=== PATIENT | male | born 2000 | race Two or more races ===

== ENCOUNTER 2025-03-02 14:41 | Emergency (ER) | payer MEDICAID, SELFPAY ==
[2025-03-02 14:42] VITALS: BMI 48.4
[2025-03-02 15:22] VITALS: BP 111/70; PULSE 119; RESP 20; TEMP 39.6; O2SAT 96
--- NOTE | 2025-03-02 15:43 | EDNOTE_ITS ---
Upper Respiratory Inf. 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 fever, dizzy, congestion for one day. Exposed to many people all day at work but does not recall specific exposure. No hx of asthma non smoker. Related Data Previous Rx's ?Medication ?Instructions ?Recorded ibuprofen 800 mg tablet 800 mg PO Q8H PRN pain #14 t abs 08/07/24 IBU 800 mg tablet (ibuprofen) 800 mg PO Q6H PRN pain # 30 tabs 03/02/25 ondansetron 4 mg disintegrating 4 mg PO Q8H PRN nausea and 03/02/25 tablet vomiting #10 tabs oseltamivir 75 mg capsule (Tamiflu) 75 mg PO BID 5 day s #10 caps 03/02/25 promethazine-DM 6.25 mg-15 mg/5 mL 5 ml PO Q6H #240 mL 03/02/25 oral syrup Allergies Allergy/AdvReac Type Severity Reaction Status Date / Time No Known Allergies Allergy Verified 08/07/24 04:57 Review of Systems Review of Systems Systems Reviewed: All systems reviewed, normal except as documented Constitutional Constitutional: Reports fever(s) ENT Ears, Nose, Mouth, and Throat: Reports as per HPI Integumentary/Breasts Skin/Breast: Reports system reviewed and no additional complaints, except as documented ED Exam General Limitations: Present no limitations General appearance: Present alert and in no apparent distress Eye Eye exam: Present normal appearance, PERRL and EOMI ENT ENT exam: Present mucous membranes moist, TM's normal bilaterally and other (rhinorrhea ) Neck Neck exam: Present normal inspection, full ROM and trachea midline Chest Chest inspection: Present normal inspection and symmetric chest wall rise Respiratory Respiratory exam: Present normal lung sounds bilaterally Cardiovascular Cardiovascular exam: Present regular rate, normal rhythm and normal heart sounds Abdominal Exam Abdominal exam: Present soft and normal bowel sounds Extremities Exam Extremities exam: Present normal inspection and full ROM Back Exam Back exam: Present normal inspection and full ROM Psychiatric Psychiatric exam: Present normal affect and normal mood Skin Skin exam: Present warm, dry, intact and normal color Course Quality Measures none Orders Category Date Time Status Bedside COVID-19 Antigen Test NOW Care 03/02/25 15:42 Completed Bedside Influenza A&B Antigen Test NOW Care 03/02/25 15:42 Completed Strep A Rapid Stat Lab 03/02/25 15:58 Completed Acetaminophen Tab [Tylenol Tab] Med 03/02/25 15:42 Discontinued 650 mg PO X1 ONE Ketorolac Inj [Toradol Inj] Med 03/02/25 15:42 Discontinued 30 mg IM X1 ONE Vital Signs Vital signs: Vital Signs Temperature 103.2 F H 03/02/25 15:22 Pulse Rate 119 H 03/02/25 15:22 Respiratory Rate 20 03/02/25 15:22 Blood Pressure 111/70 03/02/25 15:22 Pulse Oximetry (%) 96 03/02/25 15:22 Oxygen Delivery Method Room Air 03/02/25 15:22 Upper Respiratory Infection Patient data External records reviewed:: None Clinical information provided by:: patient Social determinants that could affect healthcare access:: other (specify) (works long hours can not see pcp routinely ) Patient has the following chronic illnesses:: none How is presenting disease/condition affected by chronic disease/condition?: no chronic disease Evaluation data The following diagnostics were reviewed and interpreted by me:: lab results Lab and/or radiology exams considered but not ordered:: considered xray however no cough Interpretation Summary: flu a+, covid and flu b negative Medications / Prescriptions Medications or Prescriptions considered but not ordered:: abx considered but symptoms are viral Medication administrations:: Medication Administration History Discontinued Medications Acetaminophen (Acetaminophen 325 Mg Tablet) 650 mg PO X1 ONE Stop: 03/02/25 15:43 Last Admin: 03/02/25 16:00 Dose: 650 mg Documented By: AMBERLY Ketorolac Tromethamine (Ketorolac Inj 60 Mg/2 Ml Vial) 30 mg IM X1 ONE Stop: 03/02/25 15:43 Last Admin: 03/02/25 16:01 Dose: 30 mg Documented By: AMBERLY rx sent for home Consultations Consultation(s) initiated? (list below): No Diagnosis Upper Respiratory Differential Diagnosis: upper respiratory infection, croup, viral infection, influenza and other (covid ) Most likely diagnosis given after review of the tests above:: influenza A+ Admission Indicated Admission indicated?: not indicated Admission Request Was there a request for admission?: No Disposition Plan Disposition Plan: Discharge Discharge Attestation Discharge Attestation: The patient and all family members were given an opportunity to ask questions and understood the discharge instructions. Discharge instructions specifically effects, indications for sooner follow up or return to the emergency department, and the expected course of current diagnosis. Patient condition: Stable Discharge Plan Plan Patient Disposition: HOME (Self Care) Disposition Comment: Follow-up with PCP in 2 to 3 days Prescriptions/Referrals Prescriptions/Med Rec: New oseltamivir [Tamiflu] 75 mg capsule 75 mg PO BID 5 Days Qty: 10 0RF ibuprofen [IBU] 800 mg tablet 800 mg PO Q6H PRN (Reason: pain) Qty: 30 0RF ondansetron 4 mg tablet,disintegrating 4 mg PO Q8H PRN (Reason: nausea and vomiting) Qty: 10 0RF promethazine-DM 6.25-15 mg/5 mL syrup 5 ml PO Q6H Qty: 240 0RF No Action ibuprofen 800 mg tablet 800 mg PO Q8H PRN (Reason: pain) Qty: 14 0RF Referrals: No Primary/Family,Physician [Primary Care Provider] - In 1 week Problem List Clinical Impression: Influenza Patient/Caregiver Discharge Instructions Education Materials: ED Influenza (Adult) Print Language: Bengali Stand Alone Forms: Katelynn Award Info., Work/School Release, Patient Portal Info Letter PA/INTERNET MEDIA PLANNER Supervising Physician PA/INTERNET MEDIA PLANNER Supervising Physician: dr. aceves
[2025-03-02] MEDS: ACETAMINOPHEN 325 MG TABLET 650 MG PO (16:00)
[2025-03-02 16:01] VITALS: TEMP 39.6
[2025-03-02] MEDS: KETOROLAC INJ 60 MG/2 ML VIAL 30 MG IM (16:01)
[2025-03-02 16:15] LABS: Strep A Rapid Negative (Negative)
== END 2025-03-02 17:50 | disposition home or self-care (01) ==
PROVIDERS: Physician Assistant; Emergency Provider Emergency Medicine
DX: J10.1 Influenza due to other identified influenza virus with other respiratory manifestations (principal)
CPT/HCPCS: 87400; 87651; 87811; 96372; 99283; J1885; A9270

== ENCOUNTER 2025-06-21 08:59 | Emergency (ER) | payer OTHER, SELFPAY ==
[2025-06-21 09:18] VITALS: BP 138/90; PULSE 88; RESP 16; TEMP 36.9; O2SAT 98; BMI 47.1
--- NOTE | 2025-06-21 10:01 | PD.EDHAND ---
Upper Extremity Injury RME/HPI General Chief Complaint: Hand/Wrist Problems Stated Complaint: Left thumb cut with a knife at work Time Seen by Provider: 06/21/25 10:05 Source: patient Arrival date/time: 06/21/25 08:59 24-year-old male with no known medical history presents to the emergency room with a chief complaint of a laceration to the tip of his left thumb that occurred today while at work using a knife. Mode of arrival: ambulatory Limitations: no limitations Related Data Previous Rx's ?Medication ?Instructions ?Recorded ibuprofen 800 mg tablet 800 mg PO Q8H PRN pain #14 tabs 08/07/24 IBU 800 mg tablet (ibuprofen) 800 mg PO Q6H PRN pain #30 tabs 03/02/25 ondansetron 4 mg disintegrating 4 mg PO Q8H PRN nausea and 03/02/25 tablet vomiting #10 tabs promethazine-DM 6.25 mg-15 mg/5 mL 5 ml PO Q6H #240 mL 03/02/25 oral syrup cephalexin 500 mg capsule 500 mg PO BID 7 days #14 caps 06/21/25 Allergies Allergy/AdvReac Type Severity Reaction Status Date / Time No Known Allergies Allergy Verified 06/21/25 09:03 Review of Systems Review of Systems Systems Reviewed: All systems reviewed, normal except as documented Constitutional Constitutional: Reports system reviewed and no additional complaints, except as documented, Denies fatigue, Denies fever(s), Denies headache(s) and Denies weakness Eyes Eyes: Reports system reviewed and no additional complaints, except as documented, Denies blurry vision and Denies change in vision ENT Ears, Nose, Mouth, and Throat: Reports system reviewed and no additional complaints, except as documented, Denies otalgia, Denies headache(s), Denies nasal congestion, Denies throat swelling and Denies vertigo Cardiovascular Cardiovascular: Reports system reviewed and no additional complaints, except as documented, Denies chest pain, Denies dyspnea and Denies dyspnea on exertion Respiratory Respiratory: Reports system reviewed and no additional complaints, except as documented, Denies chest congestion, Denies cough, Denies dyspnea, Denies dyspnea on exertion and Denies wheezing Gastrointestinal Gastrointestinal: Reports system reviewed and no additional complaints, except as documented, Denies abdominal pain, Denies cramping, Denies nausea and Denies vomiting Genitourinary Genitourinary: Reports system reviewed and no additional complaints, except as documented, Denies dysuria and Denies hematuria Musculoskeletal Musculoskeletal: Reports system reviewed and no additional complaints, except as documented and Denies back pain Integumentary/Breasts Skin/Breast: Reports system reviewed and no additional complaints, except as documented and Reports wounds Neurologic Neurologic: Reports system reviewed and no additional complaints, except as documented, Denies confusion, Denies headache(s), Denies lack of coordination, Denies vertigo and Denies weakness Psychiatric Psychiatric: Reports system reviewed and no additional complaints, except as documented, Denies anxiety, Denies confusion, Denies depression, Denies paranoia, Denies suicidal ideation and Denies tactile hallucinations Endocrine Endocrine: Reports system reviewed and no additional complaints, except as documented and Denies fatigue Hematologic/Lymphatic Hematologic/Lymphatic: Reports system reviewed and no additional complaints, except as documented and Denies lymphadenopathy Allergic/Immunologic Allergic/Immunologic: Reports system reviewed and no additional complaints, except as documented, Denies throat swelling, Denies urticaria and Denies wheezing Past Medical History Social History SMOKING STATUS: Current every day smoker ED Exam General Limitations: Present no limitations General appearance: Present alert and in no apparent distress Head Head exam: Present atraumatic Eye Eye exam: Present normal appearance, PERRL and EOMI ENT ENT exam: Present normal exam, normal oropharynx and mucous membranes moist Neck Neck exam: Present normal inspection, full ROM and trachea midline Chest Chest inspection: Present normal inspection and symmetric chest wall rise Respiratory Respiratory exam: Present normal lung sounds bilaterally Cardiovascular Cardiovascular exam: Present regular rate, normal rhythm and normal heart sounds Abdominal Exam Abdominal exam: Present soft and normal bowel sounds Extremities Exam Extremities exam: Present normal inspection and full ROM Expanded Upper Extremity Exam Shoulder exam: Present normal inspection Arm exam: Present normal inspection Elbow exam: Present normal inspection Forearm/Wrist exam: Present normal inspection Hand exam: Present normal inspection Hand L/R front image:  1. laceration (Laceration to the tip of the left thumb. There is no need for sutures ) Back Exam Back exam: Present normal inspection and full ROM Neurological Exam Neurological exam: Present alert, oriented X3 and CN II-XII intact Psychiatric Psychiatric exam: Present normal affect and normal mood Skin Skin exam: Present warm, dry, intact and normal color Course Quality Measures none Orders Category Date Time Status Wound Care NOW Care 06/21/25 10:01 Active TET,DIP/PERT AC (Adult)-Tdap [Boostrix Adult (Tdap) Med 06/21/25 10:01 Discontinued Vacc] 0.5 ml IMI .ONCE ONE Vital Signs Vital signs: Vital Signs Temperature 98.5 F 06/21/25 09:18 Pulse Rate 88 06/21/25 09:18 Respiratory Rate 16 06/21/25 09:18 Blood Pressure 138/90 H 06/21/25 09:18 Pulse Oximetry (%) 98 06/21/25 09:18 Oxygen Delivery Method Room Air 06/21/25 09:18 Extremity Injury MDM Narrative MDM Narrative:: 24-year-old male with no known medical history presents to the emergency room with a chief complaint of a laceration to the tip of his left thumb that occurred today while at work using a knife. Patient is hemodynamically stable and in no apparent distress Physical examination shows a 0.5 cm laceration to the tip of the left thumb. This type of laceration does not need any sutures. The injury is at the very tip and is very similar to a skin tear. There is no areas where he can close and approximated. The wound is also not bleeding. Triple antibiotic and a dressing was used and placed. A tetanus vaccination was updated. The patient was given strict return precautions for any evidence of worsening signs or symptoms including redness warmth or pus draining Patient was discharged and educated to follow-up with primary care provider in the next 24 to 48 hours and return to the emergency room for any evidence of worsening signs or symptoms Patient data External records reviewed:: [facility] previous records Clinical information provided by:: patient Social determinants that could affect healthcare access:: none Patient has the following chronic illnesses:: No chronic illness How is presenting disease/condition affected by chronic disease/condition?: no chronic disease Evaluation data The following diagnostics were reviewed and interpreted by me:: lab results and radiology exam(s) Lab and/or radiology exams considered but not ordered:: Labs and radiology exams considered in order Interpretation Summary: N/A Medications / Prescriptions Medications or Prescriptions considered but not ordered:: Tetanus vaccination updated Medication administrations:: Medication Administration History Discontinued Medications Diphtheria/Tetanus/Acell Pertussis (Diphth,Pertuss(Acell),Tet Vac 0.5 Ml Syr- Adult) 0.5 ml IMi .ONCE ONE Stop: 06/21/25 10:02 Tetanus vaccination updated Consultations Consultation(s) initiated? (list below): No Diagnosis Upper Extremity Injury Differential Diagnosis: other Most likely diagnosis given after review of the tests above:: Laceration Admission Indicated Admission indicated?: not indicated Admission Request Was there a request for admission?: No Disposition Plan Disposition Plan: Discharge Discharge Attestation Discharge Attestation: The patient and all family members were given an opportunity to ask questions and understood the discharge instructions. Discharge instructions specifically effects, indications for sooner follow up or return to the emergency department, and the expected course of current diagnosis. Patient condition: Stable Discharge Plan Plan Patient Disposition: HOME (Self Care) Discharge Disposition comment: Stable Prescriptions/Referrals Prescriptions/Med Rec: New cephalexin 500 mg capsule 500 mg PO BID 7 Days Qty: 14 0RF No Action ibuprofen [IBU] 800 mg tablet 800 mg PO Q6H PRN (Reason: pain) Qty: 30 0RF ondansetron 4 mg tablet,disintegrating 4 mg PO Q8H PRN (Reason: nausea and vomiting) Qty: 10 0RF promethazine-DM 6.25-15 mg/5 mL syrup 5 ml PO Q6H Qty: 240 0RF ibuprofen 800 mg tablet 800 mg PO Q8H PRN (Reason: pain) Qty: 14 0RF Problem List Clinical Impression: Laceration Patient/Caregiver Discharge Instructions Additional Instructions: Please follow-up with your regular doctor in the next 24 to 48 hours Please keep the area clean and dry for the next 24 hours afterwards to clean it with soap and water Antibiotics are sent to your pharmacy please pick them up and take them as indicated For any evidence of worsening signs or symptoms return to the emergency room immediately Print Language: Belarusian Stand Alone Forms: Katelynn Award Info., Patient Portal Info Letter PA/RIVETER PNEUMATIC Supervising Physician PA/RIVETER PNEUMATIC Supervising Physician: Dr. Lantigua
== END 2025-06-21 11:19 | disposition home or self-care (01) ==
PROVIDERS: Emergency Provider Nurse Practitioner Family
DX: S61.012A Laceration without foreign body of left thumb without damage to nail, initial encounter (principal); W26.0XXA Contact with knife, initial encounter; Y93.G1 Activity, food preparation and clean up; Y92.59 Other trade areas as the place of occurrence of the external cause; Y99.0 Civilian activity done for income or pay
CPT/HCPCS: 99283